=== PATIENT | female | born 1975 ===

== ENCOUNTER 2021-09-04 07:18 | Emergency (ER) | payer OTHER ==
[~2021-09-04] VITALS: Ht 162.6 cm; Wt 77.1 kg
[2021-09-04 08:37] VITALS: BP 120/85
== END 2021-09-04 09:13 | disposition home or self-care (01) ==
LOC: ER 07:18 → EDBD 07:18 → ER 09:13
DX: S16.1XXA Strain of muscle, fascia and tendon at neck level, initial encounter (principal); S90.01XA Contusion of right ankle, initial encounter; M50.30 Other cervical disc degeneration, unspecified cervical region; I10 Essential (primary) hypertension; E78.5 Hyperlipidemia, unspecified; Z90.89 Acquired absence of other organs; Z98.51 Tubal ligation status; Z88.8 Allergy status to other drugs, medicaments and biological substances; V43.52XA Car driver injured in collision with other type car in traffic accident, initial encounter; Y93.89 Activity, other specified; Y92.410 Unspecified street and highway as the place of occurrence of the external cause; Y99.8 Other external cause status
CPT/HCPCS: 72040; 73610